=== PATIENT | female | born 1955 | race Caucasian/White ===

== ENCOUNTER 2023-01-18 18:59 | Emergency (ER) | payer OTHER, SELFPAY ==
[2023-01-18 19:05] VITALS: BP 120/80; PULSE 100; O2SAT 97
[2023-01-18 19:11] VITALS: BP 119/73; PULSE 89; RESP 20; TEMP 36.8; O2SAT 96
[2023-01-18 19:16] VITALS: BP 128/83; PULSE 80; RESP 18; TEMP 36.8; O2SAT 94; BMI 17.3
--- NOTE | 2023-01-18 19:39 | ED.GENADULT ---
HPI - General Adult General Chief complaint: Fall Stated complaint: fell down 5 steps, no thinners, no collar Time Seen by Provider: 01/18/23 19:19 Source: patient, family and RN notes reviewed Mode of arrival: EMS Limitations: no limitations History of Present Illness HPI narrative: 67-year-old female presents for evaluation of left hip and lower back pain after a fall. The patient reports that she was walking the stairs at home and she was talking on the phone at the same time. She also is wearing socks and she slid down approximately 5 stairs landing on her buttocks and left side. She reports that she struck her head but did not lose consciousness Denies any headache or neck pain Patient reports this happened around 4:00 p.m. and she was on the ground for about 90 minutes before she would crawl to the phone to ask for help She complains of 10/10 pain mostly to the left hip and lower back Denies any chest pain, abdominal pain or nausea vomiting Related Data Home Medications Medication Instructions Recorded Confirmed albuterol sulfate 90 mcg/actuation 2 puff inhalation Q4H PRN wheezing 01/18/23 01/18/23 aerosol inhaler amitriptyline 10 mg tablet 10 mg PO BEDTIME 01/18/23 01/18/23 azathioprine 50 mg tablet 100 mg PO DAILY 01/18/23 01/18/23 gabapentin 300 mg capsule 300 mg PO BID 01/18/23 01/18/23 latanoprost 0.005 % eye drops 1 drp ophthalmic (eye) QPM 01/18/23 01/18/23 lorazepam 0.5 mg tablet 0.5 mg PO BID PRN anxiety 01/18/23 01/18/23 oxycodone 5 mg tablet 5 mg PO Q8H PRN pain 01/18/23 01/18/23 Previous Rx's Medication Instructions Recorded methocarbamol 500 mg tablet 500 mg PO BEDTIME PRN muscle spasm 01/18/23 #7 tabs Allergies Allergy/AdvReac Type Severity Reaction Status Date / Time bupropion [From Wellbutrin] Allergy Anaphylaxis Verified 01/18/23 19:30 Review of Systems Constitutional: Constitutional: Denies chills, Denies fever(s) and Denies weakness Eyes: Eyes: Denies blurry vision ENT: Denies vertigo, Denies dizziness, Denies sore throat and Denies throat swelling Cardiovascular: Cardiovascular: Denies chest pain and Denies Epigastric Pain Respiratory: Respiratory: Denies cough, Denies wheezing and Denies other Gastrointestinal: Gastrointestinal: Denies abdominal pain, Denies nausea and Denies vomiting Musculoskeletal: Musculoskeletal: Reports back pain, Reports arthralgias, Denies joint swelling, Reports limited range of motion, Denies stiffness and Denies tingling Integumentary/Breasts: Skin/Breast: Denies rash Neurologic: Denies vertigo, Denies dizziness, Reports radicular pain, Denies tingling and Denies weakness Allergic/Immunologic: Allergic/Immunologic: Denies throat swelling and Denies wheezing PMFSH Social History Social History Alcohol intake: current Alcohol intake frequency: 3 or more drinks per day Alcohol type: wine Smoked in Last 30 Days: Yes Use of substances other than those prescribed or required for medical reasons: No Advance Directives: No Advance Directives Information Provided: No Physical Exam ED Vital Signs: Vital Signs - 24 hr 01/18/23 19:11 01/18/23 19:16 01/18/23 20:00 Temperature 98.3 F 98.3 F Pulse Rate 89 80 84 Respiratory Rate 20 18 18 Blood Pressure 119/73 128/83 124/74 Pulse Oximetry 96 94 95 Oxygen Delivery Method Room Air Room Air 01/18/23 22:00 01/19/23 00:00 01/19/23 03:04 Temperature Pulse Rate 78 91 89 Respiratory Rate 16 18 20 Blood Pressure 118/78 126/82 143/87 H Pulse Oximetry 96 95 95 Oxygen Delivery Method Room Air 01/19/23 07:40 01/19/23 08:57 01/19/23 11:49 Temperature 97.3 F 97.4 F Pulse Rate 105 H 105 H 107 H Respiratory Rate 18 18 Blood Pressure 139/90 H 139/90 H 122/78 Pulse Oximetry 93 93 91 L Oxygen Delivery Method Room Air Room Air BMI result Body Mass Index 17.3 Const General: healthy appearing, comfortable, no acute distress, alert and awake Nutritional Appearance: well nourished Orientation/consciousness: patient oriented x3 HENMT Head: Yes normocephalic and Yes atraumatic Eyes Eyelids: Yes eyelids normal Conjunctivae: conjunctivae normal Sclerae: sclerae normal Corneas: corneas normal Pupils: Equal, round and reactive pupils present EOM: EOMs intact bilaterally Neck Neck: Yes full ROM Resp Effort & Inspection: normal respiratory effort, able to speak in complete sentences and not labored Cardio Rate: regular rate Rhythm: regular rhythm GI Inspection: No distended Palpation (GI): Soft to palpation, not firm, nontender, no guarding and not rigid Back/Spine/Pelvis Other: Tenderness to the left hip without visual or palpable deformity. No rotation of the left lower extremity. Patient also tender to the lumbar spine without step-off or deformities. She is able to move all extremities Skin General skin exam: elasticity normal Neuro General: patient oriented x3 Cranial nerves: Yes CN's II-XII intact bilaterally, Yes Equal, round and reactive pupils present and Yes Bilaterally intact EOM present Cognition (Neuro): normal cognition Course Reevaluation(s) Reevaluation #1: Discussed patient's imaging results with the patient. She has no acute traumatic injuries. Will see the patient is able to ambulate. She had does usually use a walker at home. Time: 22:24 Reevaluation #2: Tenderness and with the patient, the patient was able to stand independently but reports that she is unable take a step. She you requested to be a case management home to see Physical therapy and Case Management tomorrow. Time: 22:46 Additional Reevaluation(s): 01/19/2023 0713: Physician observation continues. Patient to be evaluated by PT and CM. 01/19/2023 1549: Patient to go to [facility] via BLS. Medications Administered Generic Name Dose Route Start Last Admin Trade Name Freq PRN Reason Stop Dose Admin Amitriptyline HCl 10 mg 01/19/23 00:15 01/19/23 00:56 Amitriptyline Hcl 10 Mg Tablet PO 10 mg BEDTIME MOISÉS Administration Azathioprine 100 mg 01/19/23 09:00 01/19/23 08:16 Azathioprine 50 Mg Tablet PO 100 mg DAILY MOISÉS Administration Gabapentin 300 mg 01/19/23 00:15 01/19/23 08:16 Gabapentin 300 Mg Capsule PO 300 mg BID MOISÉS Administration Latanoprost 1 drop 01/19/23 00:15 01/19/23 00:57 Latanoprost 0.005 % Ophth Isa 2.5 Ml Drops EYE-BOTH Not Given BEDTIME MOISÉS Oxycodone HCl 5 mg 01/19/23 00:07 01/19/23 08:16 Oxycodone Hcl Immed Release 5 Mg Tablet PO 5 mg Q8H PRN Administration Pain, Severe (Pain Scale 7-10) Discontinued Medications Generic Name Dose Route Start Last Admin Trade Name Jennifer PRN Reason Stop Dose Admin Morphine Sulfate 4 mg 01/18/23 19:32 01/18/23 20:11 Morphine Sulfate 4 Mg/Ml Cartridge IM 01/18/23 19:33 4 mg ONCE ONE Administration Protocol Ondansetron HCl 4 mg 01/18/23 19:32 01/18/23 20:11 Ondansetron Odt 4 Mg Tab.Rapdis TRANSLINGU 01/18/23 19:33 4 mg ONCE ONE Administration Ondansetron HCl 4 mg 01/19/23 07:44 01/19/23 08:16 Ondansetron Odt 4 Mg Tab.Rapdis TRANSLINGU 01/19/23 07:45 4 mg ONCE ONE Administration Medical Decision Making Medical Decision Making [facility] Narrative: 67-year-old female presents for evaluation a nonsyncopal fall. She endorses drinking alcohol in slipping down 5 steps. Will get an x-ray lumbar spine and left hip. She reports hitting her head but denies loss of conscious. She has no headache, neck pain or C-spine tenderness. Given the head strike with a CT scan of the brain. This plan for basic labs including CPK, ethanol level. Patient was given morphine IM for her pain while imaging is being obtained Differential Diagnosis Differential Diagnoses: The differential diagnosis associated with the presentation includes Mechanical fall Hip pain Hip fracture Contusion Compression fracture Intracranial fracture Syncope Rhabdomyolysis Lab Data [facility] Lab Attestation statement: I reviewed the patient's lab results. Mild leukocytosis to 12.1, no significant anemia. Normal platelet count. Patient's chloride is 110, CO2 of 19, sodium potassium within normal limits. BUN just above normal at 19, normal creatinine 01/18/23 20:14 01/18/23 20:14 Labs: Lab Results 01/18/23 01/18/23 01/19/23 Range/Units 20:14 20:49 08:22 WBC 12.1 H (4.8-10.8) X10*3/uL RBC 3.53 L (4.20-5.50) X10*6/uL Hgb 14.6 (12.0-16.0) g/dl Hct 41.2 (37.0-47.0) % MCV 116.7 H (80.0-98.0) fL MCH 41.4 H (27.0-33.0) pg MCHC 35.4 H (31.0-35.0) g/dl RDW 12.9 (11.0-16.0) % Plt Count 287 (160-400) X10*3/uL MPV 8.9 L (9.4-12.3) fL Immature Gran % (Auto) 1.2 H (0.0-0.4) % Neut % (Auto) 86.9 H (45-73) % Lymph % (Auto) 5.7 L (20-40) % Collin % (Auto) 5.7 (2-11) % Eos % (Auto) 0.2 (0-4) % Baso % (Auto) 0.3 (0-2) % Lymph # (Auto) 0.7 L (1.2-4.9) X10*3/uL Collin # (Auto) 0.7 (0.1-1.2) X10*3/uL Eos # (Auto) 0.0 (0.0-0.4) X10*3/uL Baso # (Auto) 0.0 (0.0-0.2) X10*3/uL Abs Immat Gran (auto) 0.14 H (0.00-0.03) X10*3/uL Absolute Neuts (auto) 10.6 H (2.0-8.3) x10*3/uL Absolute Nucleated RBC 0.000 (0.0-0.012) X10*3/uL Nucleated RBC % (auto) 0.0 (0.0-0.2) /100WBC Sodium 145 (135-145) mmol/L Potassium 4.0 (3.3-5.1) mmol/L Chloride 110 H (96-108) mmol/L Carbon Dioxide 19 L (22-29) mmol/L Anion Gap 20 (12-20) BUN 19 H (9-16) mg/dL Creatinine 0.58 (0.5-1.4) mg/dL Estim Creat Clear Calc 69.9 Estimated GFR > 60 Random Glucose 109 (60-115) mg/dL Calcium 9.7 (8.4-10.2) mg/dL Total Bilirubin 0.4 (0.0-1.0) mg/dL AST 43 H (5-31) U/L ALT 31 (0-31) U/L Alkaline Phosphatase 49 (39-117) U/L Total Creatine Kinase 68 (26-140) U/L Total Protein 6.8 (6.5-8.0) g/dL Albumin 4.1 (3.5-5.0) g/dL Urine Color Yellow Urine Appearance Clear Urine pH 5.5 (5.0-9.0) Ur Specific [place] <= 1.005 (1.005-1.025) Urine Protein 100 (2+) H (Neg-Trace) mg/dL Urine Glucose (UA) Negative (Negative) mg/dL Urine Ketones Negative (Negative) mg/dL Urine Blood Small (1+) H (Negative) Urine Nitrite Negative (Negative) Ur Leukocyte Esterase Negative (Negative) Urine RBC 0-2 (0-2) /HPF Urine WBC 0-5 (0-5) /HPF Ur Squamous Epith Cells 0-2 (0-2) /HPF Urine Bacteria None Seen (None Seen) Hyaline Casts 0-2 (0-2) /LPF Ethyl Alcohol 193 mg/dL COVID-19 (STUART) Negative (Negative) COVID-19 Clin Com See Note Independent Interpretation I performed an independent interpretation of an: Plain X-Ray (No obvious fracture or pelvic fracture. ) Radiology Impression Discussion of test interpretation with radiology: I have reviewed the radiologist's reading. Radiologist Impression: No acute abnormality of the CT pelvis. No acute intracranial abnormality including hemorrhage or mass effect or hydrocephalus. Partially calcified extra-axial masses involving the left posterior fossa and right superior frontal convexity likely represent hemangiomas Discharge Plan Discharge Clinical Impression: Fall Patient Disposition: Home, Self-Care Instructions: Fall Prevention for Older Adults (ED) Additional Instructions: Avoid excessive consumption of alcohol as this likely contributed to your fall today. 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 You may follow this up with your primary doctor as you may benefit from an outpatient MRI with contrast to better evaluate Take all of your medications as prescribed You may use methocarbamol as needed for muscle spasms Do not mix this with alcohol or take it and then drive within 12 hours Prescriptions: New methocarbamol 500 mg tablet 500 mg PO BEDTIME PRN (Reason: muscle spasm) Qty: 7 0RF No Action latanoprost 0.005 % drops 1 drp ophthalmic (eye) QPM azathioprine 50 mg tablet 100 mg PO DAILY lorazepam 0.5 mg tablet 0.5 mg PO BID PRN (Reason: anxiety) amitriptyline 10 mg tablet 10 mg PO BEDTIME gabapentin 300 mg capsule 300 mg PO BID albuterol sulfate 90 mcg/actuation HFA aerosol inhaler 2 puff inhalation Q4H PRN (Reason: wheezing) oxycodone 5 mg tablet 5 mg PO Q8H PRN (Reason: pain) Referrals: [facility] [Outside]
[2023-01-18 20:00] VITALS: BP 124/74; PULSE 84; RESP 18; O2SAT 95
--- NOTE | 2023-01-18 20:43 | PC.NURSE ---
straight catheterization performed - pt tolerated well. will obtain urine sample.
[2023-01-18 22:00] VITALS: BP 118/78; PULSE 78; RESP 16; O2SAT 96
--- NOTE | 2023-01-18 22:46 | PC.NURSE ---
At this time, pt is refusing discharge for concerns of inability to ambulate at home. Planning for CM evaluation with potential PT.
[2023-01-19] VITALS: BP 126/82; PULSE 91; RESP 18; O2SAT 95
--- NOTE | 2023-01-19 02:05 | PC.NURSE ---
Assumed care of pt at 1916. On initial arrival, pt endorsed pain in L hip and lower back sp fall related to ETOH consumption. Pt denies LOC, endorsing slip and fall down 5 steps. Findings negative for fx, however on trial ambulation, put unable to move more than stand/pivot from stretcher to wheechair, expressing concern for returning home. Pt changed to Case management for possible PT. pt med rec completed, offered home medications for pain. Pt endorsing intermittent nausea, tolerating PO fluids. present at bedside.
--- NOTE | 2023-01-19 02:49 | PC.NURSE ---
This law writer assumed care of this Pt at 0245. Pt reports 8/10 constant lower back pain and left hip pain and unable to move. Pt reports chronic cough. Purewhich in place.
[2023-01-19 03:04] VITALS: BP 143/87; PULSE 89; RESP 20; O2SAT 95
[2023-01-19 07:40] VITALS: BP 139/90; PULSE 105; RESP 18; TEMP 36.3; O2SAT 93
--- NOTE | 2023-01-19 07:49 | PC.NURSE ---
alert and oriented, respirations even and unlabored. two person assist to the commode, pt minimal weight bearing of left leg. requesting PRN medication for pain. bed change performed, pt back in bed utilizing pillow between her legs. call kaplan within reach.
[2023-01-19 08:57] VITALS: BP 139/90; PULSE 105; O2SAT 93
--- NOTE | 2023-01-19 10:33 | MHC.CM.ED ---
Addendum entered by Erika Johnson 01/19/23 13:42: [facility] not [facility]. [facility] is able to offer a bed and is in the process of obtaining insurance auth. Patient is on Amitriptyline for nerve pain from Shingles. Patient's will bring a copy of her HCP. Original Note: Received case management consult overnight. Patient came to the ER due to a fall. Work up essentially negative. Physical therapy eval completed. Short term rehab is recommended. Met with patient in regards to discharge planning. Patient lives with her , ambulates independently and had no services prior to coming to the ER. PCP verified as Raji Abreu at [facility]. Patient has a HCP at home. Patient received 3 Moderna and 1 Pfizer vaccine. List of facilities contracted with patient's insurance provided from [employer] [facility]: 1) [facility] 2) [facility] 3) [facility]. Referral made via [facility]. Continue to monitor for d/c needs.
[2023-01-19 11:49] VITALS: BP 122/78; PULSE 107; RESP 18; TEMP 36.3; O2SAT 91
--- NOTE | 2023-01-19 15:14 | PHA.MEDREC ---
Pharmacy Consult ? Medication Reconciliation Pharmacy has reviewed the medication reconciliation completed by Ronnie. Essence Oliveira, PharmD
--- NOTE | 2023-01-19 15:42 | MHC.CM.ED ---
Insurance auth obtained. Patient can leave at 7pm. [facility] BLS booked. Med nec with chart. Patient, Darby ENG and [place]ma ALEJANDRO aware.
--- NOTE | 2023-01-19 16:17 | PC.NURSE ---
medicated per the MAR for pain. patient aware of discharge approx 1900 via bls to [facility]. offering no other complaints at this sukh.
[2023-01-19 19:35] VITALS: BP 124/90; PULSE 91; RESP 17; TEMP 36.7; O2SAT 94
--- NOTE | 2023-01-20 00:35 | MHC.EDTECH ---
Call out to [facility] @[phone] for an ETA to [facility] Dispatch informed me 15 minutes
== END 2023-01-20 01:53 | disposition home or self-care (01) ==
PROVIDERS: Emergency Provider Emergency Medicine; PCP Physician Assistant Medical
DX: M25.552 Pain in left hip (principal); M54.50 Low back pain, unspecified; Z91.81 History of falling; Z11.52 Encounter for screening for COVID-19; Z79.899 Other long term (current) drug therapy
CPT/HCPCS: 36415; 51701; 70450; 72100; 72192; 73502; 80053; 80307; 81001; 82550; 85025; 87635; 93005; 96372; 97161; 97162; 99285; J2270